=== PATIENT | male | born 1960 | race Hispanic/Latino ===

== ENCOUNTER 2018-03-19 18:38 | Emergency (ER) | payer BC, OTHER ==
[2018-03-19 18:49] VITALS: O2SAT 97
[2018-03-19 20:26] LABS: BASO # 0.1 K/uL (0.0-0.2); BASO % 0.9 % (0.0-2.0); EOS # 0.1 K/uL (0.0-0.7); EOS % 2.4 % (0.0-4.0); HEMOGLOBIN 14.1 g/dL (12.0-18.0); LYMPH # 1.8 K/uL (1.0-4.3); LYMPH % 31.1 % (20.0-40.0); MEAN CELL VOLUME 90.4 fl (80.0-94.0); MEAN CORPUSCULAR HEMOGLOBIN 29.9 pg (27.0-31.0); MEAN PLATELET VOLUME 8.9 fl (7.2-11.7); MONO # 0.6 K/uL (0.0-0.8); MONO % 10.5 % (0.0-10.0); NEUT # 3.1 K/uL (1.8-7.0); NEUT % 55.1 % (50.0-75.0); NRBC % 0.2 % (0.0-0.0); RBC 4.74 Mil/uL (4.40-5.90); RED CELL DISTRIBUTION WIDTH 14.7 % (11.5-14.5); WHITE BLOOD COUNT 5.6 K/uL (4.8-10.8)
[2018-03-19 20:31] LABS: PROTHROMBIN TIME 11.9 Seconds (9.8-13.1)
[2018-03-19 20:34] LABS: PARTIAL THROMBOPLASTIN TIME 35.6 Seconds (25.6-37.1)
[2018-03-19 20:35] LABS: ALB/GLOB RATIO 1.5 (1.0-2.1); ALBUMIN 4.7 g/dL (3.5-5.0); ALT/SGPT 69 U/L (21-72); AST/SGOT 48 U/L (17-59); BLOOD UREA NITROGEN 14 mg/dl (9-20); CALCIUM 9.7 mg/dL (8.4-10.2); GFR NON-AFRICAN AMERICAN > 60
--- NOTE | 2018-03-19 21:13 | ED PDOC ---
HPI: Chest Pain Time Seen by Provider: 03/19/18 19:33 Chief Complaint (Nursing): Chest Pain Chief Complaint (Provider): Chest Pain History Per: Patient History/Exam Limitations: no limitations Onset/Duration Of Symptoms: Sudden Onset Additional Complaint(s): 57 y/o male presents to the ED with sudden onset chest pain as well as a self- described vaso vagal episode. Patient had this right sided sharp chest pain that occurs with certain movements since last night which he attributed to lifting heavy boxes over his head. Patient states that last week he noticed bilateral leg swelling and since then he has seen his PMD and has a full cardiology work up and DVT US study. All lab work, ultrasound of lower extremities, and previous xray have showed no cardiac abnormalities. Pt has further cardiology appointment on April 03 for echo and stress test. Patient states the last few days swelling has gone down but this evening he was sitting down and talking to his brother when he felt he was dizzy, diaphoretic, and felt like he was about to pass out. Patient is currently asymptomatic. He takes medication for HTN and diabetes and reports being compliant with taking them as instructed. Past Medical History Reviewed: Historical Data, Nursing Documentation, Vital Signs Vital Signs: Last Vital Signs Temp 98.3 F 03/19/18 18:45 Pulse 77 03/19/18 18:56 Resp 20 03/19/18 18:45 BP 145/79 03/19/18 18:56 Pulse Ox 97 03/19/18 18:45 - Medical History PMH: Diabetes, HTN, Peripheral Edema - Family History Family History: States: Unknown Family Hx - Home Medications Home Medications: Ambulatory Orders Medication Instructions Recorded Albuterol HFA [Ventolin HFA 90 2 puff IH [id number] PRN #1 bottle 09/18/14 mcg/actuation (8 g)] Levofloxacin [Levaquin] 750 mg PO DAILY #4 tab 09/18/14 Prednisone 50 mg PO DAILY #4 tab 09/18/14 - Allergies Allergies/Adverse Reactions: Allergies Allergy/AdvReac Type Severity Reaction Status Date / Time Sulfa (Sulfonamide Allergy RASH Verified 03/19/18 18:45 Antibiotics) Review of Systems ROS Statement: Except As Marked, All Systems Reviewed And Found Negative Cardiovascular: Positive for: Chest Pain Neurological: Positive for: Dizziness Physical Exam - Reviewed Nursing Documentation Reviewed: Yes Vital Signs Reviewed: Yes - Physical Exam Appears: Positive for: Well, Non-toxic, No Acute Distress Head Exam: Positive for: ATRAUMATIC, NORMOCEPHALIC Cardiovascular/Chest: Positive for: Regular Rate, Rhythm. Negative for: Murmur Respiratory: Positive for: Normal Breath Sounds. Negative for: Crackles, Rales, Rhonchi, Wheezing, Respiratory Distress Gastrointestinal/Abdominal: Positive for: Normal Exam, Soft. Negative for: Tenderness Extremity: Positive for: Pedal Edema (1+ pitting edema bilateral legs up to knees). Negative for: Deformity Neurologic/Psych: Positive for: Alert, Oriented. Negative for: Motor/Sensory Deficits - Laboratory Results Result Diagrams: 03/19/18 20:18 03/19/18 20:18 - ECG O2 Sat by Pulse Oximetry: 97 (RA) Pulse Ox Interpretation: Normal Medical Decision Making Medical Decision Making: Time: 19:43 Initial Impression: workup for cardiac etiology for near syncope and bilateral leg edema Initial Plan: * Labs * Cardiac Enzymes * equipment monitor phototypesetting * CXR * Reevaluation Scribe Attestation: Documented by Isidro Brizuela acting as a scribe for Nakia Adames MD. Provider Scribe Attestation: All medical record entries made by the Scribe were at my direction and personally dictated by me. I have reviewed the chart and agree that the record accurately reflects my personal performance of the history, physical exam, medical decision making, and the department course for this patient. I have also personally directed, reviewed, and agree with the discharge instructions and disposition. 2130: Pt with normal labs and normal EKG. Will get second troponin at midnight with likely discharge home. Disposition - Clinical Impression Clinical Impression: Chest wall pain - Disposition Disposition: Transfer of Care Disposition Time: 23:09 (Dr. Huerta) Condition: STABLE Forms: [employer] (Palauan)
--- NOTE | 2018-03-19 23:12 | ED PDOC ---
- Laboratory Results Result Diagrams: 03/19/18 20:18 03/19/18 20:18 - ECG O2 Sat by Pulse Oximetry: 97 (RA) Pulse Ox Interpretation: Normal Medical Decision Making Medical Decision Makin Patient endorsed from Dr. Adames pending second Troponin at midnight. 0103 Patient is very well appearing with normal vitals, stable for discharge. States he has followup with cardiology and his PMD. Return precautions given. No chest pain upon discharge. ----- Scribe Attestation: Documented by Kate Rubin, acting as a scribe for Jarvis Huerta MD. Provider Scribe Attestation: All medical record entries made by the Scribe were at my direction and person ally dictated by me. I have reviewed the chart and agree that the record accurately reflects my personal performance of the history, physical exam, medical decision making, and the department course for this patient. I have also personally directed, reviewed, and agree with the discharge instructions and disposition. Disposition - Clinical Impression Clinical Impression: Chest wall pain - POA Present On Arrival: None - Disposition Referrals: Yasir Liang MD [Family Provider] - Disposition: Routine/Home Disposition Time: 01:03 Condition: IMPROVED Instructions: Chest Pain That Is Not Caused by the Heart (DC) Forms: [employer] ([employer])
[2018-03-20 01:08] VITALS: BP 114/64; PULSE 64; RESP 19; TEMP 98.6
--- NOTE | 2018-03-20 09:33 | CARD ---
APPROVED REPORT Date of service: 03/19/2018 EKG Measurement Heart [id number] [id number] <Conclusion> Normal sinus rhythm Nonspecific T wave abnormality Abnormal ECG
--- NOTE | 2018-03-20 12:27 | RAD ---
Date of service: 03/19/2018 HISTORY: Chest pain, leg swelling COMPARISON: 2315 TECHNIQUE: Chest PA and lateral FINDINGS: LUNGS: No active pulmonary disease. PLEURA: No significant pleural effusion identified. No pneumothorax apparent. CARDIOVASCULAR: No aortic atherosclerotic calcification present. No radiographic findings to suggest acute or significant cardiovascular disease. No pulmonary vascular congestion. OSSEOUS STRUCTURES: No significant abnormalities. VISUALIZED UPPER ABDOMEN: Normal. OTHER FINDINGS: None. IMPRESSION: No active disease. No significant interval change compared to the prior examination(s).
== END 2018-03-20 01:10 | disposition home or self-care (01) ==
LOC: H.ER 18:38
DX: R07.89 Other chest pain (principal); E11.9 Type 2 diabetes mellitus without complications; I10 Essential (primary) hypertension

== ENCOUNTER 2018-08-14 10:44 | Emergency (ER) | payer OTHER ==
[2018-08-14 11:16] VITALS: RESP 18; O2SAT 98
--- NOTE | 2018-08-14 12:34 | ED PDOC ---
HPI: Male Pain Time Seen by Provider: 08/14/18 11:43 Chief Complaint (Nursing): Male Genitourinary Chief Complaint (Provider): Left flank pain History Per: Patient History/Exam Limitations: no limitations Additional Complaint(s): 58 y/o M with hx of DM and HTN who presents with Left sided flank pain that began today. Pt states that he was speaking with a friend earlier today when he suddenly had severe Left flank pain when getting into the car. He could not find a comfortable position and when he went home had nausea with dry heaving but no vomiting. He states the pain is the worst pain he ever had rated 10/10 on pain scale. Currently pain has improved but is happening intermittently. Last BM this morning was normal. + chills last night. Denies fever, night sweats, hx of kidney stones, dizziness, hematuria or dysuria. Past Medical History Reviewed: Historical Data, Nursing Documentation, Vital Signs Vital Signs: Last Vital Signs Temp 97.6 F 08/14/18 11:10 Pulse 78 08/14/18 11:10 Resp 18 08/14/18 11:10 BP 134/91 H 08/14/18 11:10 Pulse Ox 98 08/14/18 11:10 - Medical History PMH: Diabetes, HTN, Peripheral Edema - Surgical History Other surgeries: Right arm surgery - Family History Family History: States: Unknown Family Hx - Home Medications Home Medications: Ambulatory Orders Medication Instructions Recorded Albuterol HFA [Ventolin HFA 90 2 puff IH [id number] PRN #1 bottle 09/18/14 mcg/actuation (8 g)] Levofloxacin [Levaquin] 750 mg PO DAILY #4 tab 09/18/14 Prednisone 50 mg PO DAILY #4 tab 09/18/14 Ibuprofen [Motrin Tab] 800 mg PO Q6 PRN 7 Days tab 08/14/18 oxyCODONE/Acetaminophen [Percocet 1 ea PO Q6 PRN 2 Days tab 08/14/18 5/325 mg Tab] - Allergies Allergies/Adverse Reactions: Allergies Allergy/AdvReac Type Severity Reaction Status Date / Time Sulfa (Sulfonamide Allergy RASH Verified 03/19/18 18:45 Antibiotics) bee sting Allergy ANAPHYLAXIS Uncoded 08/14/18 11:17 Review of Systems Constitutional: Negative for: Fever, Chills Gastrointestinal: Positive for: Nausea. Negative for: Vomiting, Diarrhea, Constipation Genitourinary Male: Negative for: Dysuria, Frequency Musculoskeletal: Positive for: Back Pain (flank pain) Physical Exam - Reviewed Nursing Documentation Reviewed: Yes Vital Signs Reviewed: Yes - Physical Exam Appears: Positive for: Non-toxic Skin: Positive for: Normal Color Cardiovascular/Chest: Positive for: Regular Rate, Rhythm Respiratory: Positive for: Normal Breath Sounds Gastrointestinal/Abdominal: Positive for: Normal Exam Back: Positive for: Normal Inspection. Negative for: L CVA Tenderness, R CVA Tenderness, Vertebral Tenderness, Decreased ROM Neurological/Psych: Positive for: Awake, Alert, Oriented - Laboratory Results Result Diagrams: 08/14/18 12:48 08/14/18 14:00 - ECG O2 Sat by Pulse Oximetry: 98 Medical Decision Making Medical Decision Making: CBC, BMP CT abd/pelvis w/o contrast Toradol 30mg IV x 1 NS 1L IV x 1 Urine dip Urine dip: LE and nitrate negative; blood trace CT abd/pelvis w/o contrast: FINDINGS: LOWER THORAX: The visualized lungs are clear. LIVER: Mild hepatomegaly and fatty liver. No gross lesion or ductal dilatation. GALLBLADDER AND BILE DUCTS: Well distended. No calcified gallstones. No common bile duct dilatation. PANCREAS: Normal in size. No gross lesion or ductal dilatation. SPLEEN: Mild spinal. ADRENALS: Normal in size. No discrete nodule. KIDNEYS AND URETERS: Both kidneys are normal in size. No right hydronephrosis or nephrolithiasis. There is a 2 mm stone in the left distal ureteral proximal to the UV junction. There is mild diffuse dilatation of the left ureteral, mild fullness in the left collecting system and perinephric fat stranding. VASCULATURE: Normal in caliber. No aortic aneurysm. No aortic atherosclerotic calcification or mural plaque present. BOWEL: Evaluation of the bowel is limited in the absence of oral contrast. The small bowel loops are normal in caliber. There is scattered colonic diverticulosis without CT evidence for acute diverticulitis. No bowel dilatation or wall thi ckening. No bowel obstruction. APPENDIX: Normal appendix. PERITONEUM: No free fluid. No free air. LYMPH NODES: No enlarged lymph nodes. BLADDER: Well distended and normal in appearance. REPRODUCTIVE: The prostate gland is normal in size. BONES: No acute fracture. There are bilateral pars interarticularis defects at L5. There is mild degenerative disc disease at L5-S1 with vacuum phenomenon. OTHER FINDINGS: None. IMPRESSION: 1. 2 mm stone in the left distal ureter proximal to the UV junction, mild left hydroureteronephrosis and perinephric inflammatory changes. 2. Colonic diverticulosis without CT evidence for acute diverticulitis. 3. Mild hepatosplenomegaly and fatty liver. 16:20: Patient re-evaluated. States that pain has improved although it has been intermittent since arrival to ED. Stable for d/c home with return instructions given. Pt advised to only take Percocet for severe pain as it is a narcotic and is addictive. Patient demonstrated understanding. Disposition - Clinical Impression Clinical Impression: Nephrolithiasis - Patient ED Disposition Is Patient to be Admitted: No - Disposition Referrals: Jean Pierre Mart MD [Staff Provider] - Yasir Liang MD [Family Provider] - Disposition: Routine/Home Disposition Time: 16:23 Condition: IMPROVED Additional Instructions: Follow up with urologist (Dr. Mart) for further evaluation of kidney stone. Take Ibuprofen for pain. Take Percocet for severe pain. Return to ER if pain not treated with meds or you are urinating blood/unable to urinate. Prescriptions: Ibuprofen [Motrin Tab] 800 mg PO Q6 PRN 7 Days tab PRN Reason: Pain, Moderate (4-7) oxyCODONE/Acetaminophen [Percocet 5/325 mg Tab] 1 ea PO Q6 PRN 2 Days tab PRN Reason: Pain, Severe (8-10) Instructions: Kidney Stones (DC), Renal Colic (DC) Forms: [email or web address] (Pashto) Print Language: CZECH
[2018-08-14] MEDS ORDERED: Sodium Chloride 0.9% 1,000 ML IV SCH (12:45)
[2018-08-14 12:57] LABS: BASO # 0.1 K/uL (0.0-0.2); BASO % 0.9 % (0.0-2.0); EOS # 0.1 K/uL (0.0-0.7); EOS % 1.1 % (0.0-4.0); HEMOGLOBIN 13.6 g/dL (12.0-18.0); LYMPH # 1.5 K/uL (1.0-4.3); MEAN CELL VOLUME 88.8 fl (80.0-94.0); MEAN CORPUSCULAR HEMOGLOBIN 29.7 pg (27.0-31.0); MEAN CORPUSCULAR HGB CONC 33.5 g/dL (33.0-37.0); MEAN PLATELET VOLUME 9.3 fl (7.2-11.7); MONO # 0.6 K/uL (0.0-0.8); MONO % 7.6 % (0.0-10.0); NEUT # 5.7 K/uL (1.8-7.0); NEUT % 71.4 % (50.0-75.0); NRBC % 0.1 % (0.0-0.0); RBC 4.58 Mil/uL (4.40-5.90); RED CELL DISTRIBUTION WIDTH 14.2 % (11.5-14.5)
--- NOTE | 2018-08-14 13:55 | CT ---
Date of service: 08/14/2018 PROCEDURE: CT Abdomen and Pelvis without intravenous contrast HISTORY: Evaluate for nephrolithiasis COMPARISON: None. TECHNIQUE: CT scan of the abdomen and pelvis was performed without administration of intravenous contrast. Oral contrast was not administered. Coronal and sagittal reformatted images were obtained. Radiation dose: Total exam DLP = 915.35 mGy-cm. This CT exam was performed using one or more of the following dose reduction techniques: Automated exposure control, adjustment of the mA and/or kV according to patient size, and/or use of iterative reconstruction technique. FINDINGS: LOWER THORAX: The visualized lungs are clear. LIVER: Mild hepatomegaly and fatty liver. No gross lesion or ductal dilatation. GALLBLADDER AND BILE DUCTS: Well distended. No calcified gallstones. No common bile duct dilatation. PANCREAS: Normal in size. No gross lesion or ductal dilatation. SPLEEN: Mild spinal. ADRENALS: Normal in size. No discrete nodule. KIDNEYS AND URETERS: Both kidneys are normal in size. No right hydronephrosis or nephrolithiasis. There is a 2 mm stone in the left distal ureteral proximal to the UV junction. There is mild diffuse dilatation of the left ureteral, mild fullness in the left collecting system and perinephric fat stranding. VASCULATURE: Normal in caliber. No aortic aneurysm. No aortic atherosclerotic calcification or mural plaque present. BOWEL: Evaluation of the bowel is limited in the absence of oral contrast. The small bowel loops are normal in caliber. There is scattered colonic diverticulosis without CT evidence for acute diverticulitis. No bowel dilatation or wall thickening. No bowel obstruction. APPENDIX: Normal appendix. PERITONEUM: No free fluid. No free air. LYMPH NODES: No enlarged lymph nodes. BLADDER: Well distended and normal in appearance. REPRODUCTIVE: The prostate gland is normal in size. BONES: No acute fracture. There are bilateral pars interarticularis defects at L5. There is mild degenerative disc disease at L5-S1 with vacuum phenomenon. OTHER FINDINGS: None. IMPRESSION: 1. 2 mm stone in the left distal ureter proximal to the UV junction, mild left hydroureteronephrosis and perinephric inflammatory changes. 2. Colonic diverticulosis without CT evidence for acute diverticulitis. 3. Mild hepatosplenomegaly and fatty liver.
[2018-08-14 14:25] LABS: BLOOD UREA NITROGEN 18 mg/dl (9-20); CALCIUM 9.4 mg/dL (8.4-10.2); GFR NON-AFRICAN AMERICAN > 60
[2018-08-14 16:49] VITALS: BP 111/57; PULSE 75; TEMP 98.8
== END 2018-08-14 16:50 | disposition home or self-care (01) ==
LOC: H.ER 10:44
DX: N20.0 Calculus of kidney (principal); E11.9 Type 2 diabetes mellitus without complications; I10 Essential (primary) hypertension; K57.30 Diverticulosis of large intestine without perforation or abscess without bleeding; Z88.2 Allergy status to sulfonamides
CPT/HCPCS: 74176; 80048; 85025; 96374; 99285; J1885; J7030